=== PATIENT | male | born 1995 | race Caucasian/White ===

== ENCOUNTER 2022-05-24 08:45 | Emergency (ER) | payer BC ==
[~2022-05-24] VITALS: Ht 180.3 cm; Wt 58.5 kg
[2022-05-24 08:50] VITALS: BP_SYST 128
--- NOTE | 2022-05-24 08:50 | NUR ---
Placed in room 08 . Placed on phototypesetting equipment monitor, blood pressure machine and pulse oximeter. To gown for exam. Side rails up. Report given to LALO MCCLELLAN.
--- NOTE | 2022-05-24 09:10 | NUR ---
PT BIB SELF AWAKE AND ALERT, AOX4. NO SOB OR DISTRESS. PT C/O TINGLY FEELING IN HIS ARMS BILATERRLY. PT STATED THAT HE SCRACTHED HIS FINGER BACK ON APR 18 AND HE NOW FEARS HE HAS TETANUS. PT DENIES N/V, AND DIAHREA.
--- NOTE | 2022-05-24 09:12 | NUR ---
MD DR RIGGINS AT BEDSIDE
[2022-05-24 09:33] LABS: BASOPHILS % (AUTO) 0.6 % (0.0-2.0); EOSINOPHILS % (AUTO) 0.9 % (0.0-4.0); HEMOGLOBIN 15.7 g/dL (14.0-18.0); LYMPHOCYTES # (AUTO) 1.2 K/uL (1.0-5.5); LYMPHOCYTES % (AUTO) 31.9 % (20.5-51.5); MEAN CORPUSCULAR HEMOGLOBIN 29 pg (27-31); MEAN CORPUSCULAR HGB CONC 34 % (32-36); MEAN CORPUSCULAR VOLUME 84 fL (79.0-98.0); MONOCYTES # (AUTO) 0.2 K/uL (0.0-1.0); MONOCYTES % (AUTO) 6.2 % (1.7-9.3); NEUTROPHILS # (AUTO) 2.2 K/uL (1.8-7.7); NEUTROPHILS % (AUTO) 60.4 % (40.0-70.0); PLATELET COUNT (AUTO) 159 K/uL (130-430); RED BLOOD CELL COUNT(AUTO) 5.49 MIL/uL (4.2-6.2); WHITE BLOOD COUNT (AUTO) 3.7 K/uL (4.8-10.8)
[2022-05-24 09:50] LABS: CALCIUM 9.9 mg/dL (8.4-11.0); CREATININE 0.94 mg/dL (0.55-1.30)
[2022-05-24 10:02] LABS: ALBUMIN 4.6 g/dL (3.4-4.8); PHOSPHORUS 3.3 mg/dL (2.7-4.5); THYROID STIMULATING HORMONE 0.73 uIu/mL (0.34-4.82); TOTAL BILIRUBIN 0.7 mg/dL (0.0-1.0)
[2022-05-24 10:43] VITALS: BP_SYST 128
--- NOTE | 2022-05-24 11:57 | NUR ---
Patient given written and verbal discharge instructions and verbalizes understanding. ER MD discussed with patient the results and treatment provided. Patient in stable condition. ID arm band removed. NO Rx given. Patient educated on pain management and to follow up with PMD. Pain Scale 0/10. Opportunity for questions provided and answered. Medication side effect fact sheet provided.
== END 2022-05-24 11:57 | disposition home or self-care (01) ==
LOC: SED 08:45
DX: R25.2 Cramp and spasm (principal); R20.2 Paresthesia of skin; Z79.899 Other long term (current) drug therapy
CPT/HCPCS: 36415; 80053; 83735; 84100; 84443; 85025; 99283